=== PATIENT | female | born 1990 | race African-American/Black ===

== ENCOUNTER 2019-07-04 07:12 | Inpatient (IN) | payer MEDICAID ==
[~2019-07-04] VITALS: Ht 144.8 cm; Wt 68.9 kg
[2019-07-04] MEDS ORDERED: LACT. RINGERS/OXYTOCIN 20UNITS 1,000 ML IV SCH (07:28)
[2019-07-04] MEDS ORDERED: LACTATED RINGER'S 1,000 ML IV SCH (07:28)
[2019-07-04] MEDS ORDERED: LIDOCAINE 2%HCL (LOCAL ANESTH.) INJ 20ML MDV ID ONE (07:30)
[2019-07-04] MEDS ORDERED: NALBUPHINE HCL 10 MG/1ml INJECTION IV PRN (07:30)
[2019-07-04] MEDS ORDERED: PREN-96 PO (07:54)
[2019-07-04] MEDS ORDERED: ONDANSETRON HCL 4 MG/2 ML VIAL IV PRN (08:00)
[2019-07-04 08:13] LABS: Basophils # (auto) 0.1 10 ^3/uL (0-0.2); Basophils % (auto) 1.1 % (0.0-2.0); Eosinophils # (auto) 0.1 10 ^3/uL (0-0.8); Eosinophils % (auto) 1.7 % (0.0-7.0); Hematocrit 44.9 % (36.0-46.0); Hemoglobin 15.2 g/dL (12.2-16.2); Lymphocytes % (auto) 33.9 % (10.0-50.0); Mean Corpuscular Hemoglobin 31.7 pg (28.0-32.0); Mean Corpuscular Volume 93.2 fL (80.0-100.0); Monocytes # (auto) 0.5 10 ^3/uL (0-1.3); Monocytes % (auto) 8.9 % (0.0-12.0); Neutrophils # (auto) 3.3 10 ^3/uL (1.6-8.6); Neutrophils % (auto) 54.4 % (37.0-80.0); Nucleated Red Blood Cells % 0.1 %; Platelet Count (auto) 196 10^3/uL (140-450); Red Blood Cells 4.82 10^6/uL (4.0-5.20); Red Cell Distribution Width 14.1 % (11.8-14.3)
[2019-07-04 08:18] LABS: Urine Bacteria NONE SEEN /hpf (None Seen); Urine Blood Negative /uL (Negative); Urine Mucus FEW (None Seen); Urine Specific Gravity 1.028 (1.001-1.035); Urine WBC 5 /hpf (0 - 5)
[2019-07-04 08:29] LABS: INR 1.02 (0.9-1.15); Partial Thromboplastin Time 26.7 sec (23.64-32.05)
[2019-07-04 08:31] LABS: Albumin 2.9 g/dL (3.4-5.0); Calcium 8.8 mg/dL (8.5-10.1)
[2019-07-04 08:32] LABS: Alcohol, Urine < 3.0 mg/dL (0-5); Amphetamine Screen, Urine NEGATIVE (NEGATIVE); Barbiturate Scree,Urine NEGATIVE (NEGATIVE); Benzodiazephine Screen, Urine NEGATIVE (NEGATIVE); Cannabinoid Screen, Urine NEGATIVE (NEGATIVE); Cocaine Screen, Urine NEGATIVE (NEGATIVE); Opiate Scree,Urine NEGATIVE (NEGATIVE); Phencyclidine Screen, Urine NEGATIVE (NEGATIVE)
[2019-07-04 08:34] LABS: BUN/Creatinine Ratio 13.1; Bilirubin, Total 0.2 mg/dL (0.2-1.0); Total Protein 7.9 g/dL (6.4-8.2)
[2019-07-04] MEDS ORDERED: miSOPROStol 50 MCG per PRE-CUT 1/2 TAB VG PRN (10:00)
[2019-07-04] MEDS ORDERED: BUTORPHANOL TARTRATE 2 MG/1 ML VIAL IV ONE (10:00)
[2019-07-04] MEDS ORDERED: miSOPROStol 100 mcg TAB VG PRN (15:15)
[2019-07-04] MEDS ORDERED: MEPERIDINE HCL (50 MG/ML) 1 ML VIAL IV PRN (18:15)
[2019-07-04] MEDS ORDERED: DERMOPLAST 60ML BOTTLE TOP PRN (20:00)
[2019-07-04] MEDS ORDERED: PHISODERM TOP SOLN 240ML BTL TOP PRN (20:00)
[2019-07-04] MEDS ORDERED: METHYLERGONOVINE MALEATE 0.2 MG/ML AMP IM PRN (20:00)
[2019-07-04] MEDS ORDERED: WITCH HAZEL-GLYCERIN PAD TOP PRN (20:00)
[2019-07-04] MEDS ORDERED: LACT. RINGERS/OXYTOCIN 20UNITS 500 ML IV ONE (21:23)
[2019-07-04] MEDS ORDERED: IBUPROFEN 600 MG TAB PO PRN (21:30)
[2019-07-04] MEDS ORDERED: ACETAMINOPHEN 325 MG TAB PO PRN (21:30)
--- NOTE | 2019-07-04 22:05 | NUR ---
Ambulation: Patient OOB with standby assistance by RN. Patient ambulated to bathroom with steady gait. Patient able to void without difficulty. [facility] teaching provided with returned demonstration by patient. Clean gown provided and bed linen changed. Patient ambulated back to bed with steady gait and no distress noted.
--- NOTE | 2019-07-04 22:30 | NUR ---
Patient provided information on local mortuaries and support resources. Patient verbalizes that she will make arrangements for remains tomorrow.
[2019-07-04 23:00] VITALS: BP 135/68
[2019-07-05 02:53] VITALS: BP 134/68
[2019-07-05 06:29] VITALS: BP 142/70
--- NOTE | 2019-07-05 06:37 | NUR ---
Discharge: Discharge instructions given as ordered. Pt encouraged to follow up with [facility]NA[facility] as instructed. All questions and concerns addressed. Patient verbalized understanding. Medication reconciliation completed and copy given to patient. Patient refused vaccine T-DAP, MMR, and influenza Patient encouraged to prepare to depart unit.
[2019-07-05] MEDS ORDERED: PREN-96 PO (06:50)
[2019-07-05 07:06] LABS: RPR Non Reactive (Non Reactive)
[2019-07-05 09:14] VITALS: BP 137/78
--- NOTE | 2019-07-05 09:37 | NUR ---
Spoke with Crystal from social studies teacher, Pt cleared to go home. business services officer spoke with PT, states Pt has good family support and is aware of resources. Spoke with pt regarding mortuary arrangements. Pt will make own arrangements with [facility]. 0630 Ariella RAMIREZ at bedside, states pt may be discharged home after 0900
--- NOTE | 2019-07-05 09:45 | NUR ---
Pt states unable to get ride home at this time and would like to be discharged home. House sup. called and a taxi voucher was given
[2019-07-05 11:54] VITALS: BP 142/83
--- NOTE | 2019-07-05 11:55 | NUR ---
Pt BP read 159/91. Pt was sitting up with legs crossed. Pt repositioned to semi-montez's with legs uncrossed. BP reevaluated. See Vital signs record Called placed to [facility]. Special Assets Officer stated arrival time in approximately 45 minutes
--- NOTE | 2019-07-05 12:10 | NUR ---
Discharge: Taxi arrived and voucher given to and signed by tour bus driver. Patient taken to vehicle via ambulation, gait steady, with all personal belongings, accompanied by this RN. No distress noted at time of departure, no adverse changes in status since initial assessment.
--- NOTE | 2019-07-07 11:07 | NUR ---
I SPOKE TO BOB AT [facility] ABOUT PT'S DEMISE. SHE HAS NOT HEARD FROM ARASH. I THEN SPOKE TO ARASH AND SHE STATES SHE WILL BE MAKING ARRANGEMENTS FOR HER BABY WITH [facility] "IN ABOUT AN HOUR" AND THEN WOULD CALL ME BACK
--- NOTE | 2019-07-13 18:12 | NUR ---
MESSAGE LEFT FOR MOTHER OF DECEDENT TO CALL ME I STATED I WOULD NEED TO REPORT ABANDONMENT IF SHE DOES NOT MAKE ARRANGEMENTS FOR HER BABY
--- NOTE | 2019-07-13 18:18 | NUR ---
ARASH CALLED ME BACK. SHE STATES SHE HAS NOT BEEN FEELING WELL AND COULD NOT MAKE AN APPT WITH [facility] UNTIL WEDNESDAY. SHE SAID SHE WOULD CALL [facility] SOON ARRANGEMENTS WERE MADE
--- NOTE | 2019-07-31 11:56 | NUR ---
Have made several attempts to contact patient and patient's mother who is on her contacts. No answer. Have been attempting to contact every week, last 3 weeks with no success.
--- NOTE | 2019-08-05 11:13 | NUR ---
[facility] CALLED TO DIE TRY OUT WORKER REMAINS OF DECEDENT. UNABLE TO LEAVE MESSAGE ON MOTHERS PHONE.
== END 2019-07-05 12:10 | disposition home or self-care (01) | DRG 560 ==
LOC: LDRP 07:12 → OBSVTOIN 07:12
PROVIDERS: ADMIT Specialist; ATTEND Specialist
PROC: 10E0XZZ Delivery of Products of Conception, External Approach (ICD-10-PCS; principal; 2019-07-04)
PROC: 0UCC7ZZ Extirpation of Matter from Cervix, Via Natural or Artificial Opening (ICD-10-PCS; 2019-07-04)
DX: O36.4XX0 Maternal care for intrauterine death, not applicable or unspecified (principal); Z37.1 Single stillbirth; Z3A.22 22 weeks gestation of pregnancy
CPT/HCPCS: 36415; 59409; 80053; 80307; 81001; 84112; 85025; 85610; 85730; 86592; 86850; 86900; 86901; 96361; 96366; 96374; 96375; G0378; J2405; J2590

== ENCOUNTER 2019-12-15 05:24 | Observation (INO) | payer MEDICAID ==
[~2019-12-15] VITALS: Ht 0 cm
[~2019-12-15 05:24] MED LIST: PREN-96 PO
[2019-12-15] MEDS ORDERED: LACTATED RINGER'S 1,000 ML IV ONE (06:04)
[2019-12-15] MEDS ORDERED: LACTATED RINGER'S 1,000 ML IV SCH ×2 (06:04→10:22)
[2019-12-15] MEDS ORDERED: PREN-96 PO (06:05)
[2019-12-15] MEDS ORDERED: PROPOFOL 10 MG/ML 20 ML IV ONE ×2 (08:20→09:02)
[2019-12-15] MEDS ORDERED: fentaNYL CITRATE 100 MCG/2 ML VL ONE ×2 (08:20→09:01)
[2019-12-15] MEDS ORDERED: MIDAZOLAM HCL 1MG/1ML-2 ML VIAL ONE (08:20)
[2019-12-15] MEDS ORDERED: ONDANSETRON HCL 4 MG/2 ML VIAL ONE (08:20)
[2019-12-15] MEDS ORDERED: SODIUM CHLORIDE LOCK 10 ML ONE (08:20)
[2019-12-15 08:26] LABS: Basophils # (auto) 0 10 ^3/uL (0-0.2); Basophils % (auto) 0.4 % (0.0-2.0); Eosinophils # (auto) 0.1 10 ^3/uL (0-0.8); Eosinophils % (auto) 0.8 % (0.0-7.0); Hematocrit 38.5 % (36.0-46.0); Hemoglobin 13.3 g/dL (12.2-16.2); Lymphocytes # (auto) 1.8 10 ^3/uL (0.4-5.4); Lymphocytes % (auto) 22.7 % (10.0-50.0); Mean Corpuscular Hemoglobin 31.4 pg (28.0-32.0); Mean Corpuscular Hgb Conc. 34.5 g/dL (32.0-36.0); Mean Corpuscular Volume 91.1 fL (80.0-100.0); Monocytes # (auto) 0.5 10 ^3/uL (0-1.3); Monocytes % (auto) 6.5 % (0.0-12.0); Neutrophils # (auto) 5.6 10 ^3/uL (1.6-8.6); Neutrophils % (auto) 69.6 % (37.0-80.0); Nucleated Red Blood Cells % 0.1 %; Platelet Count (auto) 215 10^3/uL (140-450); Red Blood Cells 4.23 10^6/uL (4.0-5.20); Red Cell Distribution Width 13.7 % (11.8-14.3)
[2019-12-15 08:41] LABS: Urine Bacteria NONE SEEN /hpf (None Seen); Urine Blood Negative /uL (Negative); Urine Mucus FEW (None Seen); Urine Specific Gravity 1.021 (1.001-1.035); Urine WBC 2 /hpf (0 - 5)
[2019-12-15 08:43] LABS: INR 1.03 (0.9-1.15); Partial Thromboplastin Time 27.9 sec (23.0-31.2)
[2019-12-15 08:46] LABS: Albumin 2.8 g/dL (3.4-5.0); Calcium 8.6 mg/dL (8.5-10.1); Potassium 3.9 mmol/L (3.5-5.1)
[2019-12-15 08:51] LABS: BUN/Creatinine Ratio 9.6; Bilirubin, Total 0.2 mg/dL (0.2-1.0); Total Protein 7.1 g/dL (6.4-8.2)
[2019-12-15] MEDS ORDERED: ONDANSETRON HCL 4 MG/2 ML VIAL IV PRN ×2 (09:00→10:30)
[2019-12-15] MEDS ORDERED: HYDROmorphone HCL 2 MG/ML VL IV PRN (09:00)
[2019-12-15] MEDS ORDERED: fentaNYL CITRATE 100 MCG/2 ML VL IV PRN (09:00)
[2019-12-15] MEDS ORDERED: MORPHINE SULFATE 4 MG/ML SYR/VIAL IV PRN (09:00)
[2019-12-15 09:01] LABS: Alcohol, Urine < 3.0 mg/dL (0-10); Amphetamine Screen, Urine NEGATIVE (NEGATIVE); Barbiturate Scree,Urine NEGATIVE (NEGATIVE); Benzodiazephine Screen, Urine NEGATIVE (NEGATIVE); Cannabinoid Screen, Urine NEGATIVE (NEGATIVE); Cocaine Screen, Urine NEGATIVE (NEGATIVE); Opiate Scree,Urine NEGATIVE (NEGATIVE); Phencyclidine Screen, Urine NEGATIVE (NEGATIVE)
[2019-12-15] MEDS ORDERED: EPINEPHrine HCL 1 MG/1 ML AMP ONE (09:16)
[2019-12-15 13:30] VITALS: BP 113/71
== END 2019-12-15 15:05 | disposition home or self-care (01) ==
LOC: LDRP 05:24 → OVERFLOW 09:32
PROVIDERS: ADMIT Specialist; ATTEND Specialist
DX: O34.32 Maternal care for cervical incompetence, second trimester (principal); Z20.828 Contact with and (suspected) exposure to other viral communicable diseases; Z3A.16 16 weeks gestation of pregnancy; Z79.899 Other long term (current) drug therapy
CPT/HCPCS: 36415; 59320; 80053; 80307; 81001; 81002; 85025; 85610; 85730; 86850; 86900; 86901; 87426; G0378; J0171; J2250; J2405; J2704; J3010; 96365

== ENCOUNTER 2020-03-29 03:58 | Observation (INO) | payer MEDICAID ==
[~2020-03-29] VITALS: Ht 144.8 cm; Wt 75.3 kg
[2020-03-29] MEDS ORDERED: NIF10C GT (04:59)
[2020-03-29] MEDS ORDERED: HYDROcodone-ACET 10/325MG TAB PO ONE (06:00)
== END 2020-03-29 07:30 | disposition home or self-care (01) ==
LOC: LDRP 03:58
PROVIDERS: ADMIT Obstetrics & Gynecology; ATTEND Obstetrics & Gynecology
DX: O9A.213 Injury, poisoning and certain other consequences of external causes complicating pregnancy, third trimester (principal); O26.893 Other specified pregnancy related conditions, third trimester; R10.30 Lower abdominal pain, unspecified; W18.39XA Other fall on same level, initial encounter; Y93.89 Activity, other specified; Y92.89 Other specified places as the place of occurrence of the external cause
CPT/HCPCS: 59025; 76815; 81002; G0378

== ENCOUNTER 2020-04-29 09:05 | Observation (INO) | payer MEDICAID ==
[~2020-04-29 09:05] MED LIST changes: +NIF10C GT
[2020-05-01] MEDS ORDERED: HYDR250I6 IM (13:54)
[2020-05-01] MEDS ORDERED: LABE100T4 PO (14:56)
== END 2020-05-01 15:25 | disposition home or self-care (01) ==
LOC: UNDOADMOB 09:05 → LDRP 09:05
PROVIDERS: ADMIT Obstetrics & Gynecology; ATTEND Obstetrics & Gynecology
DX: O60.03 Preterm labor without delivery, third trimester (principal); O34.33 Maternal care for cervical incompetence, third trimester; O26.893 Other specified pregnancy related conditions, third trimester; R12 Heartburn; Z3A.34 34 weeks gestation of pregnancy
CPT/HCPCS: 59025; 76818; 81002; G0378

== ENCOUNTER 2020-05-16 11:24 | Inpatient (IN) | payer MEDICAID ==
[~2020-05-16] VITALS: Ht 139.7 cm; Wt 78.0 kg
[~2020-05-16 11:24] MED LIST changes: +HYDR250I6 IM; +LABE100T4 PO
[2020-05-16] MEDS ORDERED: BETAMETHASONE ACET (30mg/5ml) 5ml Vial 6mg/ml IM ONE (12:30)
[2020-05-16 12:47] LABS: Urine Bacteria NONE SEEN /hpf (None Seen); Urine Blood Negative /uL (Negative); Urine Specific Gravity 1.008 (1.001-1.035); Urine WBC 31 /hpf (0 - 5)
[2020-05-16] MEDS: hydrALAZINE HCL 20 MG/ML VL IV PRN ×2 (12:51→14:36)
[2020-05-16 13:12] LABS: Basophils # (auto) 0.1 10 ^3/uL (0-0.2); Basophils % (auto) 0.8 % (0.0-2.0); Eosinophils # (auto) 0.1 10 ^3/uL (0-0.8); Eosinophils % (auto) 0.7 % (0.0-7.0); Hematocrit 41.2 % (36.0-46.0); Lymphocytes # (auto) 1.7 10 ^3/uL (0.4-5.4); Lymphocytes % (auto) 18.8 % (10.0-50.0); Mean Corpuscular Hemoglobin 30.7 pg (28.0-32.0); Mean Corpuscular Hgb Conc. 33.9 g/dL (32.0-36.0); Mean Corpuscular Volume 90.6 fL (80.0-100.0); Monocytes # (auto) 0.8 10 ^3/uL (0-1.3); Monocytes % (auto) 8.6 % (0.0-12.0); Neutrophils # (auto) 6.6 10 ^3/uL (1.6-8.6); Neutrophils % (auto) 71.1 % (37.0-80.0); Nucleated Red Blood Cells % 0.1 %; Red Blood Cells 4.55 10^6/uL (4.0-5.20); Red Cell Distribution Width 14.5 % (11.8-14.3); White Blood Cell 9.3 10^3/uL (4.4-10.8)
[2020-05-16 13:30] LABS: INR 0.97 (0.9-1.15); Partial Thromboplastin Time 26.4 sec (23.0-31.2)
[2020-05-16 13:35] LABS: Albumin 2.6 g/dL (3.4-5.0); Calcium 8.4 mg/dL (8.5-10.1); Potassium 4.8 mmol/L (3.5-5.1); Uric Acid 6.3 mg/dL (2.6-6.0)
[2020-05-16 13:38] LABS: Bilirubin, Total 0.3 mg/dL (0.2-1.0); Total Protein 7.4 g/dL (6.4-8.2)
[2020-05-16 13:41] LABS: Protein, Urine 37.6 mg/dL (0.0-11.9)
[2020-05-16] MEDS ORDERED: MAGNESIUM SULFATE 100 ML IV ONE (15:45)
[2020-05-16] MEDS ORDERED: LORazepam 2MG/ML-1ML VIAL IV ONE (15:45)
[2020-05-16] MEDS ORDERED: ceFAZolin 1GM/50ML 50 ML IV SCH (16:00)
[2020-05-16] MEDS: LABETALOL HCL 200 MG TAB PO SCH (16:04)
[2020-05-16] MEDS: ACETAMINOPHEN 325 MG TAB PO PRN ×2 (16:50→23:11)
[2020-05-16] MEDS: MAGNESIUM SULFATE 40MG/ML 1,000 ML IV SCH (17:18)
[2020-05-16 17:51] LABS: Alcohol, Urine < 3.0 mg/dL (0-10); Amphetamine Screen, Urine NEGATIVE (NEGATIVE); Barbiturate Scree,Urine NEGATIVE (NEGATIVE); Benzodiazephine Screen, Urine NEGATIVE (NEGATIVE); Cannabinoid Screen, Urine NEGATIVE (NEGATIVE); Cocaine Screen, Urine NEGATIVE (NEGATIVE); Opiate Scree,Urine NEGATIVE (NEGATIVE); Phencyclidine Screen, Urine NEGATIVE (NEGATIVE)
[2020-05-16] MEDS ORDERED: ePHEDrine SULFATE 50 MG/ML AMP IV ONE ×2 (18:15→18:30)
[2020-05-16] MEDS ORDERED: ePHEDrine SULFATE 50 MG/ML AMP ONE (18:26)
[2020-05-16] MEDS: ceFAZolin 1GM/50ML 50 ML IV SCH (23:53)
[2020-05-17] VITALS (9 sets, daily range): BP systolic 113–154; BP diastolic 70–80
[2020-05-17] MEDS ORDERED: PROMETHAZINE HCL 25 MG/ML 1ML IM ONE (01:00)
[2020-05-17] MEDS ORDERED: BETAMETHASONE ACET (30mg/5ml) 5ml Vial 6mg/ml IM ONE (01:00)
[2020-05-17] MEDS ORDERED: BUTORPHANOL TARTRATE 2 MG/1 ML VIAL IV ONE (01:00)
[2020-05-17] MEDS ORDERED: WITCH HAZEL-GLYCERIN PAD TOP PRN (02:15)
[2020-05-17] MEDS ORDERED: LIDOCAINE 2%HCL (LOCAL ANESTH.) INJ 20ML MDV IJ ONE (02:15)
[2020-05-17] MEDS ORDERED: DERMOPLAST 60ML BOTTLE TOP PRN (02:15)
[2020-05-17] MEDS ORDERED: PHISODERM TOP SOLN 240ML BTL TOP PRN (02:15)
[2020-05-17] MEDS ORDERED: ROPIVACAINE HCL 200 ML EPI SCH (03:30)
[2020-05-17] MEDS ORDERED: ePHEDrine SULFATE 50 MG/ML AMP IV ONE (03:30)
[2020-05-17] MEDS ORDERED: fentaNYL CITRATE 100 MCG/2 ML VL IV ONE (03:30)
[2020-05-17] MEDS ORDERED: NALOXONE HCL 0.4 MG/ML VIAL IV ONE (03:30)
[2020-05-17 05:07] LABS: RPR Non Reactive (Non Reactive)
[2020-05-17] MEDS: LACTATED RINGER'S 1,000 ML IV SCH ×4 (05:20→17:11)
[2020-05-17] MEDS ORDERED: LACT. RINGERS/OXYTOCIN 20UNITS 1,000 ML IV ONE (05:30)
[2020-05-17] MEDS: ceFAZolin 1GM/50ML 50 ML IV SCH ×2 (09:57→20:12)
[2020-05-17] MEDS ORDERED: TERBUTALINE SULFATE 1 MG/ML 1ML VIAL SC ONE (10:00)
[2020-05-17] MEDS ORDERED: LACT. RINGERS/OXYTOCIN 20UNITS 1,000 ML IV SCH (10:00)
[2020-05-17] MEDS ORDERED: MIDAZOLAM HCL 2MG/2ML 2ml VIAL (1mg/ml) ONE (12:10)
[2020-05-17] MEDS ORDERED: MORPHINE SULF PF 2 MG/2 ML SYRG ONE (12:10)
[2020-05-17] MEDS ORDERED: fentaNYL CITRATE 100 MCG/2 ML VL ONE (12:10)
[2020-05-17] MEDS ORDERED: ONDANSETRON HCL 4 MG/2 ML VIAL IV PRN ×2 (13:15)
[2020-05-17] MEDS ORDERED: ceFAZolin 1GM/50ML 50 ML IV SCH (13:15)
[2020-05-17] MEDS ORDERED: MIDAZOLAM HCL 2MG/2ML 2ml VIAL (1mg/ml) IV PRN (13:15)
[2020-05-17] MEDS ORDERED: HYDROmorphone HCL 2 MG/ML VL IV PRN ×2 (13:15)
[2020-05-17] MEDS ORDERED: NALOXONE HCL 0.4 MG/ML VIAL IV PRN (13:15)
[2020-05-17] MEDS ORDERED: ACETAMINOPHEN IV 1000 MG/100ML (10MG/ML) IV PRN (13:15)
[2020-05-17] MEDS ORDERED: diphenhdrAMINE HCL 50 MG/1 ML VL IV PRN (13:15)
[2020-05-17] MEDS ORDERED: DexAMETHasone SOD PHOS 10MG/1ML VIAL INJ IV PRN (13:15)
[2020-05-17] MEDS ORDERED: ePHEDrine SULFATE 50 MG/ML AMP IV PRN (13:15)
[2020-05-17] MEDS ORDERED: GUM (CHEWING) 1 GUM CHEW CHEW ONE (13:15)
[2020-05-17] MEDS ORDERED: LABETALOL HCL 5 MG/ML 4ML SYRINGE IV PRN (13:15)
[2020-05-17] MEDS ORDERED: NALBUPHINE HCL 10 MG/1ml INJECTION SUBCUT ONE (13:15)
[2020-05-17] MEDS ORDERED: HYDROmorphone HCL 2 MG/ML VL IV ONE (13:30)
[2020-05-17] MEDS ORDERED: LABETALOL HCL 5 MG/ML ML 20ML VIAL IV ONE ×2 (13:40→14:00)
[2020-05-17] MEDS: MAGNESIUM SULFATE 40MG/ML 1,000 ML IV SCH (17:10)
[2020-05-17] MEDS: LABETALOL HCL 200 MG TAB PO SCH (22:00)
[2020-05-17 22:39] LABS: Albumin 2.4 g/dL (3.4-5.0); Calcium 7.4 mg/dL (8.5-10.1); Potassium 4.5 mmol/L (3.5-5.1)
[2020-05-17 22:46] LABS: BUN/Creatinine Ratio 8.8; Bilirubin, Total 0.2 mg/dL (0.2-1.0); Total Protein 6.8 g/dL (6.4-8.2); Uric Acid 6.6 mg/dL (2.6-6.0)
[2020-05-17 23:11] LABS: INR 0.97 (0.9-1.15); Partial Thromboplastin Time 27.3 sec (23.0-31.2)
[2020-05-17 23:12] LABS: Basophils # (auto) 0 10 ^3/uL (0-0.2); Eosinophils # (auto) 0 10 ^3/uL (0-0.8); Hematocrit 35.9 % (36.0-46.0); Hemoglobin 11.9 g/dL (12.2-16.2); Lymphocytes # (auto) 0.8 10 ^3/uL (0.4-5.4); Lymphocytes % (auto) 4.2 % (10.0-50.0); Mean Corpuscular Hemoglobin 30.6 pg (28.0-32.0); Mean Corpuscular Hgb Conc. 33.3 g/dL (32.0-36.0); Mean Corpuscular Volume 91.9 fL (80.0-100.0); Monocytes # (auto) 1.3 10 ^3/uL (0-1.3); Monocytes % (auto) 6.9 % (0.0-12.0); Neutrophils # (auto) 17.3 10 ^3/uL (1.6-8.6); Neutrophils % (auto) 88.9 % (37.0-80.0); Red Cell Distribution Width 14.4 % (11.8-14.3); White Blood Cell 19.4 10^3/uL (4.4-10.8)
[2020-05-18] VITALS (8 sets, daily range): BP systolic 125–146; BP diastolic 56–86
[2020-05-18] MEDS: LACTATED RINGER'S 1,000 ML IV SCH ×2 (04:01→05:54)
[2020-05-18] MEDS: ceFAZolin 1GM/50ML 50 ML IV SCH ×2 (04:01→12:35)
[2020-05-18] MEDS ORDERED: BISACODYL 10 MG RECT SUPP PR PRN (08:00)
[2020-05-18 08:09] LABS: Basophils # (auto) 0 10 ^3/uL (0-0.2); Basophils % (auto) 0.1 % (0.0-2.0); Eosinophils # (auto) 0 10 ^3/uL (0-0.8); Hematocrit 39.3 % (36.0-46.0); Hemoglobin 13.1 g/dL (12.2-16.2); Lymphocytes # (auto) 1.2 10 ^3/uL (0.4-5.4); Lymphocytes % (auto) 6.1 % (10.0-50.0); Mean Corpuscular Hgb Conc. 33.3 g/dL (32.0-36.0); Mean Corpuscular Volume 93.1 fL (80.0-100.0); Monocytes # (auto) 1.1 10 ^3/uL (0-1.3); Monocytes % (auto) 5.6 % (0.0-12.0); Neutrophils # (auto) 17.6 10 ^3/uL (1.6-8.6); Neutrophils % (auto) 88.2 % (37.0-80.0); Nucleated Red Blood Cells % 0.1 %; Red Blood Cells 4.22 10^6/uL (4.0-5.20); White Blood Cell 19.9 10^3/uL (4.4-10.8)
[2020-05-18] MEDS: HYDROcodone-ACET 5/325MG TAB PO PRN ×2 (08:27→12:38)
[2020-05-18 09:11] LABS: Albumin 2.5 g/dL (3.4-5.0); Calcium 7.7 mg/dL (8.5-10.1); Potassium 4.7 mmol/L (3.5-5.1)
[2020-05-18 09:14] LABS: BUN/Creatinine Ratio 9.7; Bilirubin, Total 0.3 mg/dL (0.2-1.0); Total Protein 7.4 g/dL (6.4-8.2); Uric Acid 6.8 mg/dL (2.6-6.0)
[2020-05-18 09:17] LABS: INR 0.96 (0.9-1.15); Partial Thromboplastin Time 23.5 sec (23.0-31.2)
[2020-05-18] MEDS: DOCUSATE SOD 100 MG CAP PO SCH ×2 (11:11→22:16)
[2020-05-18] MEDS: IBUPROFEN 800 MG TAB PO PRN ×2 (11:12→19:37)
[2020-05-18] MEDS: DOCUSATE CALCIUM 240 MG CAP PO SCH (11:12)
[2020-05-18] MEDS: LABETALOL HCL 200 MG TAB PO SCH ×2 (11:12→22:00)
[2020-05-18] MEDS: SIMETHICONE 80 MG CHEWABLE TABLET PO SCH ×3 (12:38→22:16)
[2020-05-19] VITALS (9 sets, daily range): BP systolic 138–159; BP diastolic 80–100
[2020-05-19] MEDS: HYDROcodone-ACET 5/325MG TAB PO PRN ×2 (05:03→10:13)
[2020-05-19] MEDS: SIMETHICONE 80 MG CHEWABLE TABLET PO SCH ×3 (06:39→18:00)
[2020-05-19] MEDS: LABETALOL HCL 200 MG TAB PO SCH ×3 (10:00→21:38)
[2020-05-19] MEDS: DOCUSATE SOD 100 MG CAP PO SCH (10:03)
[2020-05-19] MEDS: DOCUSATE CALCIUM 240 MG CAP PO SCH (10:03)
[2020-05-19] MEDS: IBUPROFEN 800 MG TAB PO PRN (12:19)
[2020-05-20] VITALS (9 sets, daily range): BP systolic 105–160; BP diastolic 70–104
[2020-05-20] MEDS: HYDROcodone-ACET 5/325MG TAB PO PRN ×5 (01:15→18:16)
[2020-05-20] MEDS: DOCUSATE SOD 100 MG CAP PO SCH ×3 (09:38→21:38)
[2020-05-20] MEDS: DOCUSATE CALCIUM 240 MG CAP PO SCH (09:38)
[2020-05-20] MEDS: LABETALOL HCL 200 MG TAB PO SCH ×2 (09:39→21:38)
[2020-05-20] MEDS ORDERED: LABETALOL HCL 200 MG TAB PO ONE (11:15)
[2020-05-20] MEDS: SIMETHICONE 80 MG CHEWABLE TABLET PO SCH ×3 (11:28→21:38)
[2020-05-20] MEDS ORDERED: HYDR1TAB97 PO (11:49)
[2020-05-20] MEDS: IBUPROFEN 800 MG TAB PO PRN (14:29)
[2020-05-21 02:59] VITALS: BP 138/86
[2020-05-21] MEDS: IBUPROFEN 800 MG TAB PO PRN ×2 (03:04→12:14)
[2020-05-21] MEDS: SIMETHICONE 80 MG CHEWABLE TABLET PO SCH ×2 (05:49→12:07)
[2020-05-21 07:15] VITALS: BP 149/96
[2020-05-21] MEDS: DOCUSATE SOD 100 MG CAP PO SCH (07:15)
[2020-05-21] MEDS: HYDROcodone-ACET 5/325MG TAB PO PRN (07:17)
[2020-05-21] MEDS: LABETALOL HCL 200 MG TAB PO SCH (08:47)
[2020-05-21] MEDS ORDERED: LABE200T7 PO ×3 (08:58→09:01)
[2020-05-21] MEDS: DOCUSATE CALCIUM 240 MG CAP PO SCH (12:07)
== END 2020-05-21 12:15 | disposition home or self-care (01) | DRG 540 ==
LOC: UNDOADMOB 11:24 → LDRP 11:24 → OBSVTOIN 11:24 → LDRP 13:50 → OBSVTOIN 05-17 00:53 → INTOOBSV 05-17 00:53 → LDRP 05-17 12:19 → UNDODISIN 05-21 12:15
PROVIDERS: ADMIT Obstetrics & Gynecology; ATTEND Obstetrics & Gynecology
PROC: 0UCC7ZZ Extirpation of Matter from Cervix, Via Natural or Artificial Opening (ICD-10-PCS; 2020-05-16)
PROC: 10D00Z1 Extraction of Products of Conception, Low, Open Approach (ICD-10-PCS; principal; 2020-05-17 12:10)
DX: O13.4 Gestational [pregnancy-induced] hypertension without significant proteinuria, complicating childbirth (principal); O45.93 Premature separation of placenta, unspecified, third trimester; O34.33 Maternal care for cervical incompetence, third trimester; O62.2 Other uterine inertia; Z20.822 Contact with and (suspected) exposure to COVID-19; Z37.0 Single live birth; Z3A.36 36 weeks gestation of pregnancy
CPT/HCPCS: 36415; 59025; 76805; 80053; 80307; 81001; 81002; 82570; 83735; 84156; 84550; 85025; 85384; 85610; 85730; 86592; 86850; 86900; 86901; 87426; 90935; 94760; 96360; 96361; 96365; 96366; 96372; 96374; 96375; G0378; J0131; J0690; J2250; J2590; J3490